=== PATIENT | female | born 1970 | race Caucasian/White ===

== ENCOUNTER 2018-05-30 19:56 | Emergency (ER) | payer OTHER ==
[~2018-05-30] VITALS: Ht 170.2 cm; Wt 97.5 kg
--- OUTSIDE RECORDS SUMMARY | 2018-05-30 19:58 | XMS REPORT | Continuity of Care Document ---
Author Author [facility] Address Unknown Phone Unavailable Problems Problem Status Onset Date Classification Date Reported Comments Source R10.9 - UNSPECIFIED ABDOMINAL PAIN Active 04/02/2018 [facility] Z12.31 - ENCNTR SCREEN MAMMOGRAM FOR MA Active 02/11/2018 [facility] [place] Acute frontal sinusitis 07/08/2017 Diagnosis 07/08/2017 [facility] Headache 07/08/2017 Diagnosis 07/08/2017 [facility] UNK Active 05/31/2014 [facility] ANAL SKIN TAGS Active 02/08/2014 Condition 05/30/2014 [facility] ANAL SPASM Active 02/08/2014 Condition 05/30/2014 [facility] BLEEDING, RECTAL/ANAL Active 02/08/2014 Condition 05/30/2014 [facility] CONSTIPATION, UNSPECIFIED Active 02/08/2014 Condition 05/30/2014 [facility] ANAL FISSURE Active 02/08/2014 Condition 05/30/2014 [facility] RECTAL PAIN Active 02/08/2014 Condition 05/30/2014 [facility] Discharge Diagnosis: Hemorrhoids 01/25/2014 01/27/2014 [facility] OTHER Active 01/24/2014 [facility] Medications Medication Details Route Status Patient Instructions Ordering Provider Order Date Source NIFEDIPINE 0.2% LIDOCAINE 5% TOP COMPOUND OITM apply topical TID Active 02/03/2014 [facility] SYNTHROID 200 MCG TABS one by mouth once daily Active 02/03/2014 [facility] SYNTHROID 200 MCG TABS one by mouth once daily Active 02/03/2014 [facility] Hemorrhoidal Suppositories rectal 1 supp, MI, QID, # 20 supp, 0 Refill(s) Active 01/25/2014 [facility] Amoxicillin 875 MG / Clavulanate 125 MG Oral Tablet amoxicillin 875 mg-potassium clavulanate 125 mg tablet Take 1 tablet every 12 hours by oral route as directed for 7 days. Active [facility] levothyroxine levothyroxine Active [facility] Allergies, Adverse Reactions, Alerts Substance Category Reaction Severity Reaction type Status Date Reported Comments Source Immunizations Immunization Date Given Site Status Last Updated Comments Source Results Order Name Results Value Reference Range Date Interpretation Comments Source Spine cervical wo contrast MRI Spine cervical wo contrast MRI Spine cervical wo contrast MRI , 05/07/2018 4:49 PM CDT. CLINICAL INDICATION: 47 years Female M54.2 Cervicalgia - M54.2 Cervicalgia . Comparison: None available. TECHNIQUE: Sagittal T1 and T2 weighted images were followed by axial T2-weighted views of the cervical spine without IV contrast. FINDINGS: The cervical cord is normal in size and signal intensity. There is no syrinx. The cerebellar tonsils are normal in position above the level of the foramen magnum. C5-6 ACDF hardware is noted, without evidence of hardware failure, or paravertebral fluid collection. There is straightening of cervical spine curvature with C4-5 retrolisthesis of approximately 3 mm. The vertebrae are otherwise normal in shape, signal intensity and alignment. The prevertebral soft tissues are normal. Craniocervical junction and c1-c2: No canal or foraminal stenosis C2-C3: Disc is desiccated. There is preservation of the disc height, with no bulging, herniation, spinal stenosis, or neural foraminal stenosis C3-C4: Disc is desiccated. There is preservation of the disc height, with no bulging, herniation, spinal stenosis, or neural foraminal stenosis C4-C5: Disc is desiccated with preserved disc height. 2 mm disc bulge exaggerated by the retrolisthesis with left greater than right mild uncovertebral hypertrophy and minimal facet hypertrophy. This results in mild left neural foraminal and central canal narrowing. No focal disc herniation. C5-C6: Mildly limited by metallic artifact. No significant disc bulge/herniation or canal/neural foraminal narrowing. C6-C7: Disc is desiccated with mild disc height loss. Disc osteophyte complexes with suspected subligamentous right paracentral to midline disc extrusion measuring 4 mm anterior posteriorly and extending up to 4 mm above the level the disc, with annular fissuring, superimposed moderate right greater than left uncovertebral and minimal facet hypertrophy. This results in mild right greater than left canal stenosis with contact to the anterior cord and minimal flattening. Moderate bilateral neural foraminal narrowing with deformity of bilateral C7 nerve roots. C7-T1: There is preservation of the disc signal intensity, height, with no bulging, herniation, spinal stenosis, or neural foraminal stenosis IMPRESSION: 1. Disc osteophyte complexes with possible 4 mm disc extrusion at C6-7 resulting in canal stenosis with contact to the anterior cord. 2. Multilevel foraminal narrowing including deformity of bilateral C7 nerve roots. 3. C4-5 retrolisthesis above fusion. If there is clinical concern for instability, consider flexion-extension views. 05/07/2018 - - Read by: Barry Sen MD Dictated Date/time: 05/07/18 21:39 Electronically Signed by: Barry Sen MD 05/07/18 21:46 FINAL REPORT [facility] [place] Abdomen complete US Abdomen complete US EXAM: US ABDOMEN COMPLETE DATE: 04/03/2018 9:50 AM CDT ORDERING PHYSICIAN: Massiel Hay MD CLINICAL INDICATION: - R19.7 Diarrhea, unspecified; COMPARISON: None. TECHNIQUE: Multiplanar grayscale and color Doppler ultrasound images of the abdomen. FINDINGS: Liver: Craniocaudal length: 15 cm. Normal. Echogenicity: Heterogeneously increased. Surface nodularity: None. Mass (size and location): None. Portal vein: Normal. Bile ducts: Common bile duct diameter: 3 mm.( Normal.) Intrahepatic ducts: Normal. Gallbladder: Cholecystectomy Pancreas: Head and uncinate process: Normal. Body and tail: Not seen. Spleen: Craniocaudal length: 9.8 cm. Normal. Mass or focal lesion (size and location): None. Right kidney: Hydronephrosis: None. Size: 10.6 x 5 x 5.3 cm. Normal. Echogenicity: Normal. Mass/Stone/Cyst (size and location): None. Left kidney: Hydronephrosis: None. Size: 9.8 x 2.4 x 3.3 cm. Normal. Echogenicity: Normal. Mass/Stone/Cyst (size and location): None. Abdominal aorta and IVC: Visualized portions are normal. Ascites: None. IMPRESSION: 1. Heterogeneous echogenic liver without focal lesions suggesting steatosis or other chronic hepatocellular disease 2. Otherwise unremarkable abdomen 04/03/2018 - - Read by: Mario Prabhakar MD Dictated Date/time: 04/04/18 10:45 Electronically Signed by: Mario Prabhakar MD 04/04/18 10:47 FINAL REPORT [facility] [place] Breast Complete Fabian US Breast Complete Fabian US COMPLETE ULTRASOUND OF BOTH BREASTS AND AXILLA: 02/11/2018 CLINICAL: Fibrocystic Breast/Fibrocystic Breast. COMPARISON:Comparison is made to exams dated: 02/11/2018 mammogram, 03/01/2014 ultrasound, 03/01/2014 mammogram, 12/15/2012 ultrasound, 12/15/2012 mammogram, and 11/24/2012 mammogram - [facility]. TECHNIQUE: Color flow and real-time ultrasound of both breasts four quadrants, retroareolar, and axilla regions were performed on the areas of interest. FINDINGS: There is 1.1 cm x 0.8 cm x 0.3 cm oval mass with a circumscribed margin in the right breast at 6 o'clock posterior depth 6 cm from the nipple. This oval mass is hypoechoic. There is a benign 9 mm cyst in the left breast at 12 o'clock middle depth 7 cm from the nipple. No abnormalities were seen sonographically in either axilla. IMPRESSION: PROBABLY BENIGN RECOMMENDATION:The 1.1 cm x 0.8 cm x 0.3 cm oval mass in the right breast at 6 o'clock posterior depth most likely is a fibroadenoma and is probably benign. The 9 mm cyst in the left breast at 12 o'clock middle depth is benign. A follow-up mammogram and an ultrasound in 6 months is recommended to demonstrate stability.(08/13/2018) This exam was interpreted at [id number] for LOTUS Crocker, SL 15. Professional services are provided by the [facility] of Diagnostic Imaging. Garth Mchugh M.D., cm/yann:02/11/2018 14:16:57 Cad Intern(s): Regina Hoffman [facility] letter sent: BI-RADS 3 Ultrasound BI-RADS: 3 Probably benign 02/11/2018 - - Read by: Rene Munguia MD Dictated Date/time: 02/11/18 14:16 Electronically Signed by: Rene Munguia MD 02/11/18 14:16 FINAL REPORT SHANA Crocker Breast Mammo Scrn FABIAN incl CAD MA Breast Mammo Scrn FABIAN incl CAD MA BILATERAL DIGITAL SCREENING MAMMOGRAM WITH CAD: 02/11/2018 CLINICAL: Routine/Screening. Current study was evaluated with a Computer Aided Detection (CAD) system. COMPARISON:Comparison is made to exams dated: 03/01/2014 mammogram, 12/15/2012 mammogram, and 11/24/2012 mammogram - [facility]. TECHNIQUE: Mammographic views were obtained using digital acquisition. Current study was also evaluated with a Computer Aided Detection (CAD) system. FINDINGS: The tissue of both breasts is heterogeneously dense, which could obscure detection of small masses. There are benign calcifications in both breasts. No significant masses, calcifications, or other findings are seen in either breast. There has been no significant interval change. IMPRESSION: BENIGN RECOMMENDATION:There is no mammographic evidence of malignancy. A 1 year screening mammogram is recommended.(02/12/2019) This exam was interpreted at [id number] for MELISSA Love 15. Professional services are provided by the [facility] Diagnostic Imaging. Garth Mchugh M.D. cm/penrad:02/11/2018 13:55:43 Cad Intern(s): RT Pratik(R)(M), [facility] letter sent: BI-RADS 1/2 Dense Mammogram BI-RADS: 2 Benign 02/11/2018 - - Read by: Rene Munguia MD Dictated Date/time: 02/11/18 13:55 Electronically Signed by: Rene Munguia MD 02/11/18 13:55 FINAL REPORT LOTUS Crocker Vital Signs Vital Sign Value Date Comments Source Diastolic (mm Hg) 80 07/08/2017 [facility] Height 60 07/08/2017 [facility] Systolic (mm Hg) 112 07/08/2017 [facility] Weight 204 07/08/2017 [facility] Height 66 05/30/2014 [facility] Weight 197 05/30/2014 [facility] Temperature Oral (F) 98.2 F 05/30/2014 [facility] Heart Rate 69 05/30/2014 [facility] Systolic (mm Hg) 127 05/30/2014 [facility] Diastolic (mm Hg) 80 05/30/2014 [facility] Height 66 02/03/2014 [facility] Weight 200 02/03/2014 [facility] Temperature Oral (F) 99.0 F 02/03/2014 [facility] Heart Rate 66 02/03/2014 [facility] Systolic (mm Hg) 106 02/03/2014 [facility] Diastolic (mm Hg) 75 02/03/2014 [facility] Systolic (mm Hg) 100 01/25/2014 [facility] Respitory Rate 18 01/25/2014 [facility] Heart Rate 61 01/25/2014 [facility] Temperature Oral (F) 97.8 F 01/25/2014 [facility] Diastolic (mm Hg) 55 01/25/2014 [facility] Weight 92.727 01/25/2014 [facility] BMI Calculated 33 01/25/2014 [facility] Height 167.64 cm 01/25/2014 [facility] Temperature Oral (F) 98.0 F 01/25/2014 [facility] Respitory Rate 18 01/25/2014 [facility] Diastolic (mm Hg) 78 01/25/2014 [facility] Systolic (mm Hg) 105 01/25/2014 [facility] Heart Rate 112 01/25/2014 [facility] Encounters Location Location Details Encounter Type Encounter Number Reason For Visit Attending Provider ADM Date DC Date Status Source [facility] [id number] Viet Pacheco 01/25/2014 01/25/2014 [facility] Colorectal Surgery Office Visit [id number] Fei Chery MD 02/03/2014 02/03/2014 [facility] Lab Report [id number] Fei Chery MD 02/08/2014 02/08/2014 [facility] - [facility] [id number] Ar Ames 03/01/2014 03/02/2014 SHANA Crocker [facility] Colorectal Surgery Office Visit [id number] Fei Chery MD 05/30/2014 05/30/2014 [facility] Outpatient [id number] FEI CHERY 06/26/2014 Active [facility] - [id number] Rodriguez, VACUUM FURNACE OPERATOR-C: [address] [place] [address], Ph. [id number] Freda Rodriguez 07/08/2017 [facility] Procedures Procedure Code Date Perfomer Comments Source Cholecystectomy [facility] Tubal Ligation [facility]
--- OUTSIDE RECORDS SUMMARY | 2018-05-30 19:59 | XMS REPORT | Continuity of Care Document ---
Author Author [facility] Organization [facility] Address Unknown Phone Unavailable Care Team Providers Care Second Vp Hr Assessment Name Role Phone MD Severiano, Gely KING Unavailable Insurance Providers Payer name Policy type / Coverage type Policy ID Covered democrat ID Policy Ngo [employer] (PPO) CIGNA HEALTHCARE (PPO) CIGNA HEALTHCARE (PPO) C[employer] - [employer] (PPO) CIGNA HEALTHCARE (PPO) CIGNA HEALTHCARE (PPO) CIGNA HEALTHCARE (PPO) C[employer]NA HEALTHCARE (PPO) C[employer] HEALTHCARE (PPO) CIGNA HEALTHCARE (PPO) [employer] HEALTHCARE (PPO) Encounters Encounter Performer Location Date Office Visit Gely العلي MD [facility] Colorectal Surgery Feb 03, 2014 Problems Problem Effective Dates Problem Status ANAL SKIN TAGS Feb 08, 2014 Active ANAL SPASM Feb 08, 2014 Active BLEEDING, RECTAL/ANAL Feb 08, 2014 Active CONSTIPATION, UNSPECIFIED Feb 08, 2014 Active ANAL FISSURE Feb 08, 2014 Active RECTAL PAIN Feb 08, 2014 Active Procedures Date Description Comments Feb 03, 2014 smoking status Never smoker Medications Medication Instructions Start Date Status SYNTHROID 200 MCG TABS one by mouth once daily Feb 03, 2014 Active NIFEDIPINE 0.2% LIDOCAINE 5% TOP COMPOUND OITM apply topical TID Feb 03, 2014 Active Vital Signs Date Description Test Result Feb 03, 2014 height E&M HEIGHT 66 in Feb 03, 2014 weight E&M WEIGHT 200 lb Feb 03, 2014 temperature E&M TEMPERATURE 99.0 deg f Feb 03, 2014 pulse rate E&M PULSE RATE 66 /min Feb 03, 2014 blood pressure, systolic BP SYSTOLIC 106 mm Hg Feb 03, 2014 blood pressure, diastolic BP DIASTOLIC 75 mm Hg
--- OUTSIDE RECORDS SUMMARY | 2018-05-30 19:59 | XMS REPORT | Continuity of Care Document ---
Author Author [facility] Organization [facility] Address Unknown Phone Unavailable Care Team Providers Care Fixed Interest Dealer Name Role Phone MD Severiano, Gely PP Unavailable Insurance Providers Payer name Policy type / Coverage type Policy ID Covered green party ID Policy Ngo [employer] HE[employer] (PPO) CIGNA HEALTHCARE (PPO) CIGNA HEALTHCARE (PPO) [employer] - [employer] (PPO) C[employer]NA HEALTHCARE (PPO) CIGNA HEALTHCARE (PPO) CIGNA HEALTHCARE (PPO) CIGNA HEALTHCARE (PPO) CIGNA HEALTHCARE (PPO) CIGNA HEALTHCARE (PPO) CIGNA HEALTHCARE (PPO) [employer] (PPO) C[employer] HEALTHCARE (PPO) CIGNA HEALTHCARE (PPO) CIG[employer] HEALTHCARE (PPO) Encounters Encounter Performer Location Date Office Visit Gely العلي MD [facility] Colorectal Surgery May 30, 2014 Problems Problem Effective Dates Problem Status ANAL SKIN TAGS Feb 08, 2014 Active ANAL SPASM Feb 08, 2014 Active BLEEDING, RECTAL/ANAL Feb 08, 2014 Active CONSTIPATION, UNSPECIFIED Feb 08, 2014 Active ANAL FISSURE Feb 08, 2014 Active RECTAL PAIN Feb 08, 2014 Active Procedures Date Description Comments Feb 03, 2014 smoking status Never smoker May 30, 2014 smoking status Never smoker Medications Medication Instructions Start Date Status SYNTHROID 200 MCG TABS one by mouth once daily Feb 03, 2014 Active NIFEDIPINE 0.2% LIDOCAINE 5% TOP COMPOUND OITM apply topical TID Feb 03, 2014 Active Vital Signs Date Description Test Result Feb 03, 2014 height E&M - 8302-2 HEIGHT 66 in Feb 03, 2014 weight E&M - 3141-9 WEIGHT 200 lb Feb 03, 2014 temperature E&M TEMPERATURE 99.0 deg f Feb 03, 2014 pulse rate E&M - 8867-4 PULSE RATE 66 /min Feb 03, 2014 blood pressure, systolic - 8480-6 BP SYSTOLIC 106 mm Hg Feb 03, 2014 blood pressure, diastolic - 8462-4 BP DIASTOLIC 75 mm Hg May 30, 2014 height E&M - 8302-2 HEIGHT 66 in May 30, 2014 weight E&M - 3141-9 WEIGHT 197 lb May 30, 2014 temperature E&M TEMPERATURE 98.2 deg f May 30, 2014 pulse rate E&M - 8867-4 PULSE RATE 69 /min May 30, 2014 blood pressure, systolic - 8480-6 BP SYSTOLIC 127 mm Hg May 30, 2014 blood pressure, diastolic - 8462-4 BP DIASTOLIC 80 mm Hg
--- OUTSIDE RECORDS SUMMARY | 2018-05-30 19:59 | XMS REPORT | Summary of Care ---
Author Organization Unknown Address Unknown Phone Unavailable Encounter [facility] Encntr_alias(FIN) [id number] Date(s): 03/01/14 - 03/01/14 [facility] Outpatient Imaging - [address] [address]- [place] Discharge Disposition: Home Physician Attending: Ar Ames MD Reason for Visit 793.80 - ABL MAMMOGRAM N Problem List No data available for this section Allergies, Adverse Reactions, Alerts Substance Reaction Severity Status NKDA Active Medications No data available for this section Medications Administered During Your Visit No data available for this section Immunizations No data available for this section Social History Social History Type Response Smoking Status Never smoker, Exposure to Tobacco Smoke None, Cigarette Smoking Last 365 Days No, Reg Smoking Cessation Counseling No
--- OUTSIDE RECORDS SUMMARY | 2018-05-30 19:59 | XMS REPORT | Continuity of Care Document ---
Author Author [facility] Organization [facility] Address Unknown Phone Unavailable Care Team Providers Care Utility Locate Technician Name Role Phone MD Severiano, Gely PP Unavailable Insurance Providers Payer name Policy type / Coverage type Policy ID Covered democrat ID Policy Ngo [employer] HE[employer] (PPO) CIGNA HEALTHCARE (PPO) CIGNA HEALTHCARE (PPO) C[employer] - [employer] (PPO) CIGNA HEALTHCARE (PPO) CIGNA HEALTHCARE (PPO) CIGNA HEALTHCARE (PPO) CIGNA HEALTHCARE (PPO) C[employer] HEALTHCARE (PPO) CIGNA HEALTHCARE (PPO) C[employer] HEALTHC[employer] (PPO) Encounters Encounter Performer Location Date Lab Report Gely العلي MD [facility] Feb 08, 2014 Medications Medication Instructions Start Date Status NIFEDIPINE 0.2% LIDOCAINE 5% TOP COMPOUND OITM [...]
--- OUTSIDE RECORDS SUMMARY | 2018-05-30 19:59 | XMS REPORT | Encounter Summary ---
Author Organization Unknown Address [address] [place] [address] Phone [phone] Reason for Visit Medical Complaint Instructions 1. Acute frontal sinusitis sinusitis: care instructions amoxicillin 875 mg-potassium clavulanate 125 mg tablet 2. Headache headache: care instructions Discussion Note Pt is in NAD; Verbalizes understanding of all instructions with no questions at this time. Plan of Care Patient Instructions Take Excedrin extra strenght as per package insert for headache. Take fluticasone over the counter as needed for congestion. [place] one spray in each nostril twice a day. Take a warm, steamy shower, blow your nose thereafter, and spray in each nostril. Tilt your head up for about 10 seconds and breath through your mouth. Do not sniff or snort the medication in or else the medication will go to your throat and not be absorbed appropriately. Take over the counter renaldo, claritin, zyrtec, benadryl or Xyzal for allergy like symptoms like runny nose, sneezing and watery eyes. Take Antibiotic as directed and with food to avoid GI distress and start probiotics as well to aid with GI health. Take medications as prescribed and follow up with a PCP within 2-3 if symptoms worsen as discussed. Reminders Provider Appointments None recorded. Lab None recorded. Referral None recorded. Procedures None recorded. Surgeries None recorded. Imaging None recorded. Medications Name Start Date amoxicillin 875 mg-potassium clavulanate 125 mg tablet Take 1 tablet every 12 hours by oral route as directed for 7 days. levothyroxine Medications Administered None recorded. Vitals Height Weight BMI Blood Pressure 5 ft 204 lbs 39.8 kg/m2 112/80 mm[Hg] Lab Results None recorded. Allergies Code Code System Name Reaction Severity Status Onset NKDA Problems None recorded. Procedures Date Name Performed by Cholecystectomy Information not available Tubal Ligation Information not available Vaccine List None recorded. Social History Smoking Status Never Smoker Past Encounters 07/08/2017 Acute Frontal Sinusitis; Headache Freda Rodriguez, MANAGER [employer]-C: [address] [place] [address], Ph. History of Present Illness [id number]-Xpgxmgl Reported By: Patient HPI: Location: head/sinuses. Quality: nasal/sinus congestion. Duration: 7days. Severity: moderate. Onset/Timing: gradual. Context: no sick contacts, no foreign travel, non-smoker. Modifying factors: ; none. Associated Symptoms: no sputum production, no shortness of breath, no wheezing, no change in number of pillows needed to sleep at night, no sweats, no significant weight gain, no significant weight loss, no morning cough, no sore throat, no vomiting, no diarrhea, no rash, no nausea, no fever, no muscle aches, headache; nasal congestion, sinus pressure and frontal sinus area pain Review of Systems:ROS as noted in the HPI Review of Systems Basic Reported By: Patient Physical Exam Adult Basic, Adult Female Complete, Adult Male Complete Reported By: Patient Constitutional: General Appearance: healthy-appearing, well-nourished, well-developed. Level of Distress: NAD. Ambulation: ambulating normally Psychiatric: Mental Status: active and alert. Orientation: to time, to place, to person Eyes: Lids and Conjunctivae: non-injected, no discharge, no pallor. Pupils: PERRLA. Corneas: grossly intact. EOM: EOMI. Lens: clear. Vision: peripheral vision grossly intact Abt-Fsho-Xkfgs-Throat: Ears: no lesions on external ear, no outer ear tenderness, EACs clear, TMs clear. Hearing: no hearing loss. Nose: no lesions on external nose, nares patent, no septal deviation, nasal passages clear, sinus tenderness. Lips, Teeth, and Gums: no mouth or lip ulcers, no bleeding gums, normal dentition. Oropharynx: moist mucous membranes, no erythema, no exudates, tonsils not enlarged Neck: Neck: supple. Lymph Nodes: no cervical LAD Lungs: Respiratory effort: no dyspnea, no tachypnea, no use of accessory muscles, no intercostal retractions. Auscultation: breath sounds normal, good air movement Cardiovascular: Heart Auscultation: RRR, no murmurs Neurologic: Gait and Station: normal gait, normal station. Cranial Nerves: grossly intact. Sensation: grossly intact. Reflexes: DTRs 2+ bilaterally throughout
--- OUTSIDE RECORDS SUMMARY | 2018-05-30 19:59 | XMS REPORT | Summary of Care ---
Author Organization Unknown Address Unknown Phone Unavailable Encounter HQ Susan(TEENA) [id number] Date(s): 01/24/14 - 01/25/14 [facility] [address] Discharge Diagnosis: Hemorrhoids Discharge Disposition: Home Physician Attending: Viet Pacheco MD Reason for Visit OTHER Vital Signs Most recent to 1 2 oldest [Reference Range]: Height 167.64 cm (01/24/14 10:29 PM) Temperature Oral 97.8 DegF 98.0 DegF [96.4-99.1 DegF] (01/25/14 12:48 AM) (01/24/14 10:29 PM) Systolic Blood 100 mmHg 105 mmHg Pressure [90-140 (01/25/14 12:48 AM) (01/24/14 10:29 PM) mmHg] Diastolic Blood 55 mmHg 78 mmHg Pressure [60-90 *LOW* (01/24/14 10:29 PM) mmHg] (01/25/14 12:48 AM) Respiratory Rate 18 BRMIN 18 BRMIN [14-20 BRMIN] (01/25/14 12:48 AM) (01/24/14 10:29 PM) Peripheral Pulse 61 bpm 112 bpm Rate [60-100 bpm] (01/25/14 12:48 AM) *HI* (01/24/14 10:29 PM) Weight 92.727 kg (01/24/14 10:29 PM) Body Mass Index 33 m2 (01/24/14 10:29 PM) Problem List No data available for this section Allergies, Adverse Reactions, Alerts Substance Reaction Severity Status NKDA Active Medications Hemorrhoidal Suppositories rectal 1 supp, IA, QID, # 20 supp, 0 Refill(s) Start Date: 01/25/14 Stop Date: 01/30/14 Status: Ordered Medications Administered During Your Visit No data available for this section Immunizations No data available for this section Social History Social History Type Response Smoking Status Never smoker, Exposure to Tobacco Smoke None, Cigarette Smoking Last 365 Days No, Reg Smoking Cessation Counseling No
[2018-05-30] MEDS ORDERED: TETANUS/DIPHTHERIA TOX ADULT 0.5 ML SYR IM ONE (20:15)
[2018-05-30 20:46] VITALS: BP 121/64
== END 2018-05-30 20:47 | disposition home or self-care (01) ==
LOC: ER 19:56
DX: S61.412A Laceration without foreign body of left hand, initial encounter (principal); W26.0XXA Contact with knife, initial encounter; Y92.008 Other place in unspecified non-institutional (private) residence as the place of occurrence of the external cause; E03.9 Hypothyroidism, unspecified
CPT/HCPCS: 90471; 90714; 99281